=== PATIENT | male | born 1980 | race Caucasian/White ===

== ENCOUNTER 2016-11-16 16:19 | Emergency (ER) | payer OTHER ==
[~2016-11-16] VITALS: Ht 177.8 cm; Wt 72.5 kg
[~2016-11-16 16:19] MED LIST: METO50TA7 PO
[2016-11-16 16:25] VITALS: BP 161/89; PULSE 58; TEMP 36.9; O2SAT 100; Ht 177.8 cm; Wt 72.5 kg
--- NOTE | 2016-11-16 17:11 | EMERGENCY ROOM VISIT NOTE ---
ED Visit Note First contact with patient: 16:29 CHIEF COMPLAINT: Head injury HISTORY OF PRESENT ILLNESS: This 36-year-old male patient presented to the emergency department after receiving a head injury about 10 hours ago. The patient states he was walking through his hallway when he accidentally struck his head right-sided forehead on a door frame. There was no brief loss of consciousness. There has been no vomiting. The patient complains of mild headache. The patient denies other symptoms. The patient complains of no neck pain. The patient has taken nothing for the pain. The patient rates the pain as 5/10 and dull. The patient denies bowel or bladder dysfunction. The patient denies any other injuries. REVIEW OF SYSTEMS: A review of systems was performed with positives and pertinent negatives listed in the history of present illness. All other systems were reviewed and are negative. ALLERGIES: No known allergies MEDICATIONS: No chronic medications PMH: No chronic medical disease SOCIAL HISTORY: Otherwise healthy PHYSICAL EXAM: Vital Signs: Reviewed Nurse's notes, vital signs stable. GENERAL : White male, in no acute distress, well-developed, well-nourished. NEURO: The patient is alert, oriented to person place and time, and coherent. Normal mini mental status exam. Negative Romberg and pronator drift. Cerebellar function intact. GCS 15. HEAD: Very small area of ecchymosis over the right side forehead. No rhoades sign or raccoon eyes. EYES: Pupils are equal round and reactive to light and accommodation. EOMs are full and optic discs and fundi are normal. There is no swelling or discoloration of the tissue surrounding the eyes. EARS: External auditory canals clear without blood. NOSE: Patent without tenderness. No septal hematoma. FACE: No facial bone tenderness. NECK: Supple. There is no cervical spine tenderness. The patient does note have tenderness with movement of the neck. ED COURSE: Physical exam and history were performed. Nursing notes and EMR were reviewed. The patient appears to have suffered a head injury earlier today. On examination the patient does not appear toxic. Neurologically he is intact. He is describing a persistent headache, and may have some very mild concussion symptoms. I discussed options of CT scan imaging, and in shared decision making we elected against CT scan at this time. The patient will be managed conservatively with [id number] analgesics. I recommended that he follow with his PCP this week for further care and management. He is certainly invited back to the ER with any new, worsening, or concerning symptoms. Current/Historical Medications Scheduled Metoprolol Succ (Toprol Xl) (Toprol-Xl), 50 MG PO DAILY Allergies Coded Allergies: No Known Allergies (Unverified , 06/04/11) Vital Signs Date Time Temp Pulse Resp B/P Pulse Ox O2 Delivery O2 Flow Rate FiO2 11/16/16 16:25 36.9 58 17 161/89 100 Room Air Departure Information Impression Primary Impression: Head injury Dispostion Home / Self-Care Condition GOOD Forms HOME CARE DOCUMENTATION FORM, IMPORTANT VISIT INFORMATION Patient Instructions My [facility] Additional Instructions You were seen and evaluated today on an emergency basis only. This is not a substitute for, or an effort to provide, complete comprehensive medical care. It is not possible to recognize and treat all injuries or illnesses in a single emergency department visit. For this reason it is recommended that you followup with your primary care physician this week with any ongoing or persistent symptoms. For baseline pain relief you may alternate ibuprofen and acetaminophen every 4 hours for pain control. Take 600 mg ibuprofen (Advil) and then 4 hours later take 1000 mg acetaminophen (Tylenol). Do not take more than 3000 mg acetaminophen in a single day. You are welcome to return to the emergency department anytime with new, worsening, or concerning symptoms.
== END 2016-11-16 17:15 | disposition home or self-care (01) ==
LOC: C.EDB 16:22 → C.EDD 17:15
DX: S09.90XA Unspecified injury of head, initial encounter (principal); W22.09XA Striking against other stationary object, initial encounter; Y93.01 Activity, walking, marching and hiking; Y99.8 Other external cause status